=== PATIENT | male | born 1995 | race Caucasian/White ===

== ENCOUNTER 2016-12-20 14:28 | Emergency (ER) | payer BC ==
[2016-12-20 14:41] VITALS: BP 105/83; PULSE 108; RESP 16; TEMP 100; O2SAT 98
--- NOTE | 2016-12-20 15:13 | EDPHY ---
H & P Stated Complaint: Sore Throat x2days, vomiting HPI/ROS: CHIEF COMPLAINT: Sore throat HISTORY OF PRESENT ILLNESS: The patient is a 21 year old male who presents to the emergency department with 2-3 days of sore throat. He complains of pain with swallowing as well as some shortness of breath, but is still able to swallow. He has associated headache and feels febrile, but has not taken his temperature. Last night he had 1 episode of emesis. He has no associated abdominal pain or diarrhea. No cough or chest pain. The patient is not taking any prescription medication. He did not receive a flu shot this year. REVIEW OF SYSTEMS: A 10 point review of systems was performed and is negative with the exception of the elements mentioned in the history of present illness. Source: Patient - Personal History Current Tetanus/Diphtheria Vaccine: Yes Current Tetanus Diphtheria and Acellular Pertussis (TDAP): Yes - Medical/Surgical History Hx Asthma: No Hx Chronic Respiratory Disease: No Hx Diabetes: No Hx Cardiac Disease: No Hx Renal Disease: No Hx Cirrhosis: No Hx Alcoholism: No Hx HIV/AIDS: No Hx Splenectomy or Spleen Trauma: No Other PMH: Fibula Surgery - Social History Smoking Status: Never smoked Additional Social History: [employer] Student. Social ETOH. - Physical Exam Exam: Adult Physical: General Appearance: Alert, no acute distress. HR 108 at triage. Eyes: Pupils equal and round, no conjunctival injection, no discharge. ENT, Mouth: Mucous membranes are moist, Posterior oropharynx with erythema and scattered papules. No swelling, no exudates. Neck: Anterior cervical lymphadenopathy. Respiratory: Lungs are clear to auscultation; no wheezes, rales, or ronchi. Cardiovascular: Regular rate and rhythm; not tachycardic at time of my exam, no murmur, rub, or gallop. Gastrointestinal: Abdomen is soft and non tender, no masses or organomegaly, bowel sounds normal. Skin: Warm and dry, no rashes, normal color. Back: Nontender to palpation over the thoracolumbar spine. Extremities: No lower extremity edema, no calf tenderness or swelling. Neurological: Alert and oriented. Moving all four extremities easily and equally. Psychiatric: Normal affect. Constitutional: Initial Vital Signs Temperature (C) 37.8 C 12/20/16 14:39 Heart Rate 108 H 12/20/16 14:39 Respiratory Rate 16 12/20/16 14:39 Blood Pressure 105/83 H 12/20/16 14:39 O2 Sat (%) 98 12/20/16 14:39 O2 Delivery Mode Room Air Allergies/Adverse Reactions: No Known Allergies Allergy (Unverified 12/20/16 14:39) Home Medications: Medication Instructions Recorded Hydrocodone/APAP 5/325 [[place] 1 - 2 tab PO Q4 PRN #10 tab 12/20/16 5/325 (RX)] Medical Decision Making ED Course/Re-evaluation: The patient received 650mg Tylenol PO and 400mg Ibuprofen PO. A strep culture was sent. Rapid strep negative. I do not think that influenza testing will be helpful as he is outside the window for Tamiflu. He is not febrile or ill appearing. He is managing his secretions and appears well hydrated. We discussed symptomatic treatment of sore throat and danger signs that should prompt him to be re-evaluated. This is likely a viral pharyngitis. Differential Diagnosis: DDX includes but is not limited to viral or bacterial pharyngitis, strep throat , influenza, retropharyngeal abscess, epiglottitis, and mononucleosis. - Data Points Medications Given: Discontinued Medications Acetaminophen (Tylenol) 650 mg PO EDNOW ONE Stop: 12/20/16 15:17 Last Admin: 12/20/16 15:30 Dose: 650 mg Ibuprofen (Motrin) 400 mg PO EDNOW ONE Stop: 12/20/16 15:17 Last Admin: 12/20/16 15:30 Dose: 400 mg Departure - Departure Disposition: Home, Routine, Self-Care Clinical Impression: Acute pharyngitis Condition: Good Instructions: Pharyngitis (ED) Additional Instructions: Adult Pain & Fever Control: We recommend Acetaminophen (Tylenol) and Ibuprofen (Motrin,Advil) for pain and fever control. When fever is high or pain severe, both drugs can be used at the same time, but at different intervals. Please note the time differences. Your dose is: Acetaminophen 650mg every 4 to 6 hours Ibuprofen 400mg every 6-8 hours with food Note: Do not take Acetaminophen with Hydrocodone (Vicodin, Lortab) or Oxycodone (Percocet). These medications also contain Acetaminophen. No more than 3000mg of Acetaminophen should be taken in 24 hours (for an adult). Try Throat Coat tea, salt water gargles, lozenges. If you have fever (temperature over 100.4) you should stay home. Referrals: Antonella ACHARYA [Other] - As per Instructions [facility] [Outside] - As per Instructions Prescriptions: Hydrocodone/APAP 5/325 [[place] 5/325 (RX)] 1 - 2 tab PO Q4 PRN #10 tab PRN Reason: pain Report Scribed for: Alaina Cook Report Scribed by: Sary Rivera Date of Report: 12/20/16 Time of Report: 15:17 Physician Review and Approval Statement: 12/20/16 15:17 Portions of this note were transcribed by the medical front desk specialist. I, Dr. Alaina Cook, personally performed the history, physical exam, and medical decision- making; and confirmed the accuracy of the information in the transcribed note.
[2016-12-20] MEDS ORDERED: IBUPROFEN 200 MG TAB PO ONE (15:16)
[2016-12-20] MEDS ORDERED: ACETAMINOPHEN 325 MG TAB PO ONE (15:16)
== END 2016-12-20 16:41 | disposition home or self-care (01) ==
DX: J02.9 Acute pharyngitis, unspecified (principal)

== ENCOUNTER 2016-12-22 17:46 | Emergency (ER) | payer BC ==
--- NOTE | 2016-12-22 18:16 | EDPHY ---
H & P Stated Complaint: Here 2 days ago w/ same c/o'has laryngitis,sore throat. handling secretions Time Seen by Provider: 12/22/16 18:00 HPI/ROS: CHIEF COMPLAINT: continued sore throat HISTORY OF PRESENT ILLNESS: 21-year-old male complaining of 4 days of sore throat. He was seen in the ER 2 days ago for complaints of same, had negative strep testing. He was given supportive therapy. He returns today as symptoms continue, continued laryngitis, continued odynophagia. No nuchal rigidity. No headache. No fever or chills. No rash. No abdominal pain. No flank pain. REVIEW OF SYSTEMS: A ten point review of systems was performed and is negative with the exception of the items mentioned in the HPI PAST MEDICAL & SURGICAL HISTORY: No pertinent medical or surgical history SOCIAL HISTORY: Student nonsmoker PHYSICAL EXAM (Prior to examination, patient consented to physical exam, hands were washed and my usual and customary physical exam procedures followed) 1) GENERAL: Well-developed, well-nourished, alert and oriented. Appears appears nontoxic 2) HEAD: Normocephalic, atraumatic 3) HEENT: Pupils equal, round, reactive to light bilaterally. Sclera anicteric. Oropharynx: Hoarse voice. Bilateral tonsils are symmetrical, enlarged, white exudate present. Floor of mouth soft. Ears bilaterally with normal tympanic membranes. 4) NECK: Full range of motion, no meningeal signs . Positive submandibular adenopathy which is bilaterally tender in symmetrical. . 5) LUNGS: Clear auscultation bilaterally, no wheezes, no rhonchi, no retractions. 6) HEART: Regular rate and rhythm, no murmur, no heave, no gallop. 7) ABDOMEN: No guarding, no rebound, no focal tenderness, negative McBurney's, negative May's, negative Rovsing's, negative peritoneal sign, Specifically no left upper quadrant left flank tenderness 8) MUSCULOSKELETAL: Moving all extremities, no focal areas of tenderness, no obvious trauma. No peripheral edema or discoloration. 9) BACK: No CVA tenderness, no midline vertebral tenderness, no fluctuance, no step-off, no obvious trauma, no visual or palpable abnormality. 10) SKIN: No rash, no petechiae. 11) Psychiatric: Patient is oriented X 3, there is no agitation. DIFFERENTIAL DIAGNOSIS: in no particular include but limited to strep pharyngitis, mononucleosis, peritonsillar abscess, retropharyngeal abscess, paraspinal abscess - Personal History Current Tetanus Diphtheria and Acellular Pertussis (TDAP): Yes - Medical/Surgical History Hx Asthma: No Hx Chronic Respiratory Disease: No Hx Diabetes: No Hx Cardiac Disease: No Hx Renal Disease: No Hx Cirrhosis: No Hx Alcoholism: No Hx HIV/AIDS: No Hx Splenectomy or Spleen Trauma: No Other PMH: Fibula Surgery - Social History Smoking Status: Never smoked Constitutional: Initial Vital Signs Temperature (C) 37.1 C 12/22/16 17:52 Heart Rate 86 12/22/16 17:52 Respiratory Rate 18 12/22/16 17:52 Blood Pressure 113/73 12/22/16 17:52 O2 Sat (%) 93 12/22/16 17:52 O2 Delivery Mode Room Air Allergies/Adverse Reactions: No Known Allergies Allergy (Verified 12/22/16 17:51) Home Medications: Medication Instructions Recorded Hydrocodone/APAP 5/325 [[place] 1 - 2 tab PO Q4 PRN #10 tab 12/20/16 5/325 (RX)] Amoxicillin/Clavulanate Pot 875 mg PO BID #14 tab 12/22/16 [Augmentin 875 mg tab] methylPREDNISolone [Medrol Dose 4 mg PO DAILY #1 ea 12/22/16 Fitz] Medical Decision Making ED Course/Re-evaluation: Patient's Monospot is negative. High clinical suspicion for strep pharyngitis. Doubt pharyngeal abscess. Recommended starting on Augmentin. Also recommend starting the patient on Solu-Medrol. Inquired about prior adverse reaction to you steroid and/or mental health history and he denies both. Usual customary pharyngitis precautions provided. Follow up with ENT. - Data Points Laboratory Results: 12/22/16 18:22 Monoscreen NEGATIVE (NEGATIVE) Departure - Departure Disposition: Home, Routine, Self-Care Clinical Impression: Acute streptococcal pharyngitis Condition: Good Instructions: Pharyngitis (ED) Additional Instructions: Return to the ER immediately if you cannot swallow, have drooling, fevers, neck stiffness, cannot open your jaw, or any other symptoms that concern you. Referrals: Sandi Pitts MD [Medical Doctor] - 2-3 days, call for appt. Stand Alone Forms: School Excuse Prescriptions: Amoxicillin/Clavulanate Pot [Augmentin 875 mg tab] 875 mg PO BID #14 tab methylPREDNISolone [Medrol Dose Fitz] 4 mg PO DAILY #1 ea
[2016-12-22 19:17] VITALS: BP 129/85; PULSE 75; RESP 16; TEMP 99; O2SAT 95
== END 2016-12-22 19:21 | disposition home or self-care (01) ==
DX: J02.0 Streptococcal pharyngitis (principal)

== ENCOUNTER → 2017-03-30 | Outpatient (CLI) | payer BC | LOC: FIMAGING 09:18 | PROVIDERS: ATTEND Orthopaedic Surgery Hand Surgery | DX: S52.041A Displaced fracture of coronoid process of right ulna, initial encounter for closed fracture (principal); S53.104D Unspecified dislocation of right ulnohumeral joint, subsequent encounter | CPT/HCPCS: 73200-PO ==

== ENCOUNTER 2017-09-06 17:25 | Emergency (ER) | payer BC, OTHER ==
[2017-09-06 17:33] VITALS: TEMP 98.6
[2017-09-06] MEDS ORDERED: TDAP ADULT 0.5 ML INJ (BOOSTRIX) IM ONE (19:11)
--- NOTE | 2017-09-06 19:11 | EDPHY ---
H & P Stated Complaint: LAC TO 3RD DIGIT L HAND Time Seen by Provider: 09/06/17 17:40 HPI/ROS: Chief complaint: Left middle finger laceration History of present illness: This is a 22-year-old male who presents to the emergency department for left middle finger laceration. He was at work when he cut his finger tip on a knife. Reports pain. There has been bleeding that has been controlled with a dressing. No report of paresthesias or abnormal coolness in the finger. He is still moving it well. He is unsure of his last tetanus shot. - Personal History Current Tetanus/Diphtheria Vaccine: No - Medical/Surgical History Hx Asthma: No Hx Chronic Respiratory Disease: No Hx Diabetes: No Hx Cardiac Disease: No Hx Renal Disease: No Hx Cirrhosis: No Hx Alcoholism: No Hx HIV/AIDS: No Hx Splenectomy or Spleen Trauma: No Other PMH: Fibula Surgery - Social History Smoking Status: Never smoked - Physical Exam Exam: General: Alert, nontoxic Skin: 1 cm laceration to the tip of the left middle finger Musculoskeletal: Patient is flexing and extending his finger in the DIPJ, PIP and MCP joint well Vascular: Capillary refill brisk in the left middle finger Neurologic: Sensation intact using light touch and two-point discrimination Constitutional: Initial Vital Signs Temperature (C) 37 C 09/06/17 17:31 Heart Rate 68 09/06/17 17:31 Respiratory Rate 18 09/06/17 17:31 Blood Pressure 110/70 09/06/17 17:31 O2 Sat (%) 95 09/06/17 17:31 O2 Delivery Mode Room Air Allergies/Adverse Reactions: No Known Allergies Allergy (Verified 09/06/17 17:30) Home Medications: Medication Instructions Recorded NK [No Known Home Meds] 09/06/17 Medical Decision Making - Diagnostics Imaging Results: Imaging Impressions Finger X-Ray 09/06/17 18:14 Impression: No acute osseous findings. Imaging: I viewed and interpreted images myself Procedures: Procedure: Laceration repair. Verbal consent was obtained from the patient. The 1 cm laceration on the left middle finger was anesthetized in the usual fashion. The wound was irrigated, draped and explored to its base with a gloved finger. There were no deep structures involved. No tendon injury was identified. The wound was repaired with 5 0 Prolene, 3 simple interrupted sutures . The wound repair was simple . The procedure was performed by myself. ED Course/Re-evaluation: Patient seen under the supervision of my secondary supervising physician Dr. Ruiz Troncoso. Patient presents to the emergency department for a laceration to his left middle finger. The finger appears neurovascularly intact. He has good musculoskeletal control. X-ray is negative. Wound is anesthetized, cleaned and repaired. His tetanus is updated. He is discharged home. He is asked to follow up with a worker's compensation doctor or hand doctor for recheck. Return precautions are given. Patient voiced understanding and agreement with plan. Differential Diagnosis: Included but not limited to laceration, deep structure injury, foreign body contamination Departure - Departure Disposition: Home, Routine, Self-Care Clinical Impression: Finger laceration Qualifiers: Encounter type: initial encounter Finger: middle finger Damage to nail status: without damage Foreign body presence: without foreign body Laterality: left Qualified Code(s): S61.213A - Laceration without foreign body of left middle finger without damage to nail, initial encounter Condition: Good Instructions: Care For Your Stitches (ED), Finger Laceration (ED), Acute Wounds (ED) Additional Instructions: Follow-up with worker's compensation or hand doctor for further evaluation this week Stitches to be removed in approximately 7 days If symptoms worsen or new symptoms develop return to the emergency room for recheck Referrals: NONE *PRIMARY CARE P,. [Primary Care Provider] - As per Instructions Elizabeth Ramírez MD [Medical Doctor] - As per Instructions
[2017-09-06 20:04] VITALS: BP 108/77; PULSE 66; RESP 16; O2SAT 96
== END 2017-09-14 15:07 | disposition home or self-care (01) ==
PROC: 0HQGXZZ Repair Left Hand Skin, External Approach (ICD-10-PCS; principal; 2017-09-06)
DX: S61.213A Laceration without foreign body of left middle finger without damage to nail, initial encounter (principal); Z23 Encounter for immunization; W26.0XXA Contact with knife, initial encounter

== ENCOUNTER 2018-01-05 21:42 | Emergency (ER) | payer BC, OTHER ==
[2018-01-05 21:54] VITALS: BP 105/68; PULSE 83; RESP 16; TEMP 98.4; O2SAT 94
[2018-01-05] MEDS ORDERED: DEXAMETHASONE 4 MG TAB PO ONE (22:29)
[2018-01-05] MEDS ORDERED: OXYMETAZOLINE 30 ML NASAL SPRAY EACHNARE ONE (22:29)
--- NOTE | 2018-01-05 22:42 | EDPHY ---
H & P Stated Complaint: COUGH, R EAR CLOGGED, RUNNY NOSE Time Seen by Provider: 01/05/18 22:14 HPI/ROS: CHIEF COMPLAINT: Sinus congestion, right ear pain HISTORY OF PRESENT ILLNESS: Patient is a 22-year-old man who comes to the emergency department complaining sinus congestion and dry cough for the last 3 days, no fever. Tonight he also developed some right-sided ear pain. No headache, no neck pain, no shortness of breath. No nausea vomiting. No diarrhea. No rashes. His remained has also been ill with similar symptoms. REVIEW OF SYSTEMS: Constitutional: See HPI EENTM: See HPI denies: blurred vision, double vision, Respiratory: denies: cough, shortness of breath Cardiac: denies: chest pain, irregular heart rate, lightheadedness, palpitations Gastrointestinal/Abdominal: denies: abdominal pain, diarrhea, nausea, vomiting, blood streaked stools Genitourinary: denies: dysuria, frequency, hematuria, pain Musculoskeletal: denies: joint pain, muscle pain Skin: denies: lesions, rash, jaundice, bruising Neurological: denies: headache, numbness, paresthesia, tingling, dizziness, weakness Hematologic/Lymphatic: denies: blood clots, easy bleeding, easy bruising Immunologic/allergic: denies: HIV/AIDS, transplant EXAM: GENERAL: Well-appearing, well-nourished and in no acute distress. HEAD: Atraumatic, normocephalic. EYES: Pupils equal round and reactive to light, extraocular movements intact, sclera anicteric, conjunctiva are normal. ENT: TMs with mild effusion on the right, no erythema, sinus congestion, oropharynx clear without exudates. Moist mucous membranes. NECK: Normal range of motion, supple without lymphadenopathy or JVD. LUNGS: Breath sounds clear to auscultation bilaterally and equal. No wheezes rales or rhonchi. HEART: Regular rate and rhythm without murmurs, rubs or gallops. ABDOMEN: Soft, nontender, normoactive bowel sounds. No guarding, no rebound. No masses appreciated. BACK: No CVA tenderness, no spinal tenderness, step-offs or deformities EXTREMITIES: Normal range of motion, no pitting or edema. No clubbing or cyanosis. NEUROLOGICAL: Cranial nerves II through XII grossly intact. Normal speech, normal gait. 5/5 strength, normal movement in all extremities, normal sensation PSYCH: Normal mood, normal affect. SKIN: Warm, dry, normal turgor, no visible rashes or lesions. Source: Patient Exam Limitations: No limitations - Personal History Current Tetanus Diphtheria and Acellular Pertussis (TDAP): Yes - Medical/Surgical History Hx Asthma: No Hx Chronic Respiratory Disease: No Hx Diabetes: No Hx Cardiac Disease: No Hx Renal Disease: No Hx Cirrhosis: No Hx Alcoholism: No Hx HIV/AIDS: No Hx Splenectomy or Spleen Trauma: No Other PMH: Fibula Surgery, R ELBOW DISLOCATION - Family History Significant Family History: No pertinent family hx - Social History Smoking Status: Never smoked Alcohol Use: Sober Drug Use: None Constitutional: Initial Vital Signs Temperature (C) 36.9 C 01/05/18 21:52 Heart Rate 83 01/05/18 21:52 Respiratory Rate 16 01/05/18 21:52 Blood Pressure 105/68 01/05/18 21:52 O2 Sat (%) 94 01/05/18 21:52 O2 Delivery Mode Room Air Allergies/Adverse Reactions: No Known Allergies Allergy (Verified 09/06/17 17:30) Home Medications: Medication Instructions Recorded Promethazine HCl/Codeine 5 ml PO Q4-6PRN PRN #90 ml 01/05/18 [Prometh-Codein 6.25-10 mg/5 ml] Medical Decision Making ED Course/Re-evaluation: The patient appears to have an upper respiratory tract infection with mild effusion in his ear. I recommended decongestants and a dose of Decadron and will prescribe cough syrup. The patient understands and agrees with this plan. He declines further workup or testing at this time. Differential Diagnosis: Partial list of the Differential diagnosis considered include but were not limited to; upper respiratory tract infection, sinusitis, otitis media, otitis externa and although unlikely based on the history and physical exam, I also considered meningitis, pneumonia, sepsis. I discussed these differential diagnoses and the plan with the patient as well as the usual and expected course. The patient understands that the diagnosis is provisional and that in medicine we are not always correct and that further workup is often warranted. Usual and customary warnings were given. All of the patient's questions were answered. The patient was instructed to return to the emergency department should the symptoms at all worsen or return, otherwise to followup with the physician as we discussed. - Data Points Medications Given: Discontinued Medications Dexamethasone (Decadron) 10 mg PO EDNOW ONE Stop: 01/05/18 22:30 Last Admin: 01/05/18 22:33 Dose: 10 mg Oxymetazoline HCl (Afrin Nasal [place]) 2 sprays EACHNARE EDNOW ONE Stop: 01/05/18 22:30 Last Admin: 01/05/18 22:34 Dose: 2 spr Departure - Departure Disposition: Home, Routine, Self-Care Clinical Impression: Upper respiratory tract infection Qualifiers: URI type: unspecified viral URI Qualified Code(s): J06.9 - Acute upper respiratory infection, unspecified Condition: Good Instructions: Upper Respiratory Infection (ED) Referrals: NONE *PRIMARY CARE P,. [Primary Care Provider] - As per Instructions Kan Rhodes MD [[facility] [place] Primary Care Provider] - As per Instructions Prescriptions: Promethazine HCl/Codeine [Prometh-Codein 6.25-10 mg/5 ml] 5 ml PO Q4-6PRN PRN # 90 ml PRN Reason: Cough, Moderate
== END 2018-01-05 22:48 | disposition home or self-care (01) ==
DX: J06.9 Acute upper respiratory infection, unspecified (principal)

== ENCOUNTER 2018-06-22 22:13 | Emergency (ER) | payer BC ==
--- NOTE | 2018-06-22 23:02 | EDPHY ---
H & P Time Seen by Provider: 06/22/18 23:00 HPI/ROS: Chief complaint. Cough HPI. A 23-year-old male presents with cough for 2 days. It is worse at night. Slight productive in the morning. No fever. No chest pain. No shortness of breath. No history of lung problems. No recent travel. Sick contact with girlfriend. No abdominal pain or vomiting or diarrhea. Znxy-[id number] treatment so far. ROS Constitutional. no fever/chills, no weakness Eyes. no problems with vision ENT. no sore throat, no nasal drainage Cardiovascular. no chest pain Respiratory. Cough but no shortness of breath Abdominal. no abdominal pain, no nausea/vomiting, no diarrhea . no problems urinating MS. no calf pain/swelling, no neck/back pain, no joint pain Skin. no rash Lymph. no swollen glands Neuro. no headache, no dizziness, no difficulty walking or with speech Past Medical/Surgical History: Fibula surgery, right elbow dislocation Social History: Single, nonsmoker, no alcohol Smoking Status: Never smoked Physical Exam: General Appearance: Alert well-developed male mild distress vital signs are stable Eyes: Pupils equal and round no pallor or injection. ENT, tympanic membranes are normal. Pharynx slightly red but without exudate Respiratory: Retractions. Mild inspiratory expiratory rhonchi. Cardiovascular: Regular rate and rhythm. Gastrointestinal: Abdomen is soft and nontender, no masses, bowel sounds normal. Neurological: Awake and alert, sensory and motor exams grossly normal. Skin: Warm and dry, no rashes. Musculoskeletal: Neck is supple nontender. Extremities symmetrical, full range of motion. Psychiatric: Patient is oriented X 3, there is no agitation. Constitutional: Initial Vital Signs Temperature (C) 37.0 C 06/22/18 22:17 Heart Rate 61 06/22/18 22:17 Respiratory Rate 16 06/22/18 22:17 Blood Pressure 100/75 06/22/18 22:17 O2 Sat (%) 95 06/22/18 22:17 O2 Delivery Mode Room Air Allergies/Adverse Reactions: No Known Allergies Allergy (Verified 09/06/17 17:30) Home Medications: Medication Instructions Recorded Benzonatate [Tessalon Pearles (RX)] 100 mg PO TID PRN #20 cap 06/22/18 Medical Decision Making - Diagnostics Imaging Results: Chest x-ray interpreted by me consistent with bronchitis. No evidence for pneumonia ED Course/Re-evaluation: Re-evaluation 11:50 p.m.. Patient is stable. He and I discussed imaging study results, treatment plan including criteria for return importance of follow-up further evaluation. He expresses understanding and agreement Patient is given Tessalon Perle in the emergency department for cough Differential Diagnosis: I considered pneumonia. It appears the patient has bronchitis Departure - Departure Disposition: Home, Routine, Self-Care Clinical Impression: Acute bronchitis Qualifiers: Bronchitis organism: unspecified organism Qualified Code(s): J20.9 - Acute bronchitis, unspecified Condition: Good Instructions: Acute Bronchitis (ED) Additional Instructions: Drink plenty of fluids and stay hydrated. Good rest and sleep Albuterol inhaler using 2 puffs every 4 hr to help with cough Tessalon Perles to help with cough. Return for worsening symptoms. Re-evaluation in 2-3 days if not improving Referrals: NONE *PRIMARY CARE P,. [Primary Care Provider] - As per Instructions Prince Bullock MD [Medical Doctor] - 2-3 days, if not improved Prescriptions: Benzonatate [Tessalon Pearles (RX)] 100 mg PO TID PRN #20 cap PRN Reason: Cough, Moderate
[2018-06-22] MEDS ORDERED: BENZONATATE 100 MG CAP PO ONE (23:52)
[2018-06-22] MEDS ORDERED: ALBUTEROL INH PREPACK MDI TAKEHOME ONE (23:52)
[2018-06-23 00:09] VITALS: BP 115/71
== END 2018-06-23 00:08 | disposition home or self-care (01) ==
DX: J20.9 Acute bronchitis, unspecified (principal)

== ENCOUNTER 2019-02-28 11:02 | Emergency (ER) | payer BC ==
[2019-02-28] MEDS ORDERED: LIDOCAINE 4%/MENTHOL 1% PATCH TD ONE (11:21)
[2019-02-28] MEDS ORDERED: DIAZEPAM 5 MG TAB PO ONE (11:21)
[2019-02-28] MEDS ORDERED: IBUPROFEN 600 MG TAB PO ONE (11:21)
--- NOTE | 2019-02-28 11:26 | EDPHY ---
General Time Seen by Provider: 02/28/19 11:09 Narrative: CLINICAL IMPRESSION: Right-sided cervical strain ASSESSMENT/PLAN: 23-year-old male presents to the emergency department with atraumatic right- sided neck pain after stretching this morning. No associated neurological deficits including headache, facial numbness, diplopia, upper extremity weakness or paresthesias, dizziness or vertigo. Pain is reproducible along the paravertebral muscles of the right side. X-rays negative for acute fracture, read by Radiology with mild anterior listhesis C4 on C5. Patient received oral analgesics and was allowed a period of observation however reported no improvement in his pain. Discussed with Dr. Isaacs. CT a ordered which was read by Radiology showing no evidence of vertebral artery dissection or acute C- spine abnormality. Results reviewed with the patient. I have prescribed pain medication and muscle relaxers. I have encouraged primary care follow-up and referrals given. Warning signs return to ED sooner discussed in discharge. DIFFERENTIAL DX: Differential includes but not limited to musculoskeletal strain, fracture, subluxation, vertebral artery dissection ED PROCEDURES: See lab and/or imaging results below ED COURSE: 12:00pm: xrays reviewed by myself, radiology read without acute fx, mild anterolithesis C4 on C5. Patient reassessed. Reports still has 9/10 pain trying to turn head to right. Discussed with Dr. Isaacs. Patient has no neuro deficits or neuro complaints. However given the subjective reported level of pain, he will be observed for another 30 min to allow medications to take cold and if pain persists consider CTA neck. 12:35 p.m.: Patient reassessed again. States his pain is essentially unchanged. Continues to complain of "really bad pain", 9/10 with attempted turning his head to the right. Remains without complaints of headache, dizziness, vertigo, upper extremity weakness or numbness, diplopia, or facial numbness. However given persistent unchanged pain level, will pursue CTA. 2:15 p.m.: CTA results discussed with Dr. Helm. Negative study CHIEF COMPLAINT: Right-sided neck pain HPI: 23-year-old otherwise healthy male presents to the emergency department with complaints of atraumatic right-sided neck pain that began this morning after he awoke and was stretching. Patient reports feeling a pulling and cracking sensation in his neck. He had simply put his arms above his head, stretched his legs out, and turned his head to the left. He states now he has significant right-sided neck pain. No associated dizziness, lightheadedness, vertigo, headache, upper extremity numbness or weakness. No prior neck injury or surgery. He states pain is worse with attempts to turn the head neck to the right and with standing up. He states "this pain is worse than when I dislocated my elbow and fractured my wrist". He did not take anything for pain prior to arrival. He drove himself to the emergency department. PAST MEDICAL HISTORY: No significant medical history. Past orthopedic surgical history See triage summary and nurse notes for addition applicable history REVIEW OF SYSTEMS: A full 10 point review of systems was negative except for those mentioned in HPI. PHYSICAL EXAM: General Appearance: Alert, oriented, appropriate, cooperative, laying in the bed with his head turned slightly to the left, well hydrated, non-toxic appearing, VSS, no hypoxia. HEENT: TMs are clear bilaterally no perforation or FB, no injection, no evidence of serous or mucopurulent otitis. Oropharynx clear is no erythema or exudates, no tonsillar hypertrophy or asymmetry. Dentition without abnormality. Neck: Supple, tenderness along the paravertebral muscles of the cervical spine, extending up to the insertion point at the occiput. No reproducible tenderness along the trapezius. No carotid bruits. No obvious swelling or deformity. Patient is resistant to turning his head midline or to the right due to worsening pain. No midline pain. no lymphadenopathy, no meningismus. Musculoskeletal:. Intact range of motion of bilateral upper extremities. Director Of Market Analysis strength 5/5 bilaterally. Intact distal neurovascular exam of both arms Skin: Warm, dry, no rashes, no nodules on palpation. MEDICAL DECISION MAKING: Patient was seen independently. Secondary supervising physician at time of evaluation was: Dr. Isaacs. Diagnosis: Right-sided cervical strain. New, requires workup Summary: See Assessment and Plan for summary of ED visit Clinical lab tests: ordered / reviewed. Independent visualization of images, tracing, or specimens: Yes. Patient Progress: Stable for discharge. - Diagnostics Imaging Results: Imaging Impressions Cervical Spine X-Ray 02/28/19 11:22 Impression: Rightward curvature of the cervical spine with trace anterolisthesis of C4 on C5 with no acute osseous findings. If pain persists and clinical suspicion warrants, consider CT or MRI Neck CTA 02/28/19 12:38 Impression: 1. Normal CT angiogram of the neck to the base of the skull. Anthony Browne was notified of these findings by telephone at 2:15 PM on 02/28/2019. - History Smoking Status: Never smoked - Objective Vital Signs: Initial Vital Signs Temperature (C) 36.5 C 02/28/19 11:06 Heart Rate 68 02/28/19 11:06 Respiratory Rate 16 02/28/19 11:06 Blood Pressure 124/94 H 02/28/19 11:06 O2 Sat (%) 98 02/28/19 11:06 O2 Delivery Mode Room Air Allergies/Adverse Reactions: No Known Allergies Allergy (Verified 02/28/19 11:06) Home Medications: Medication Instructions Recorded Cyclobenzaprine [Flexeril] 10 mg PO TID #15 tab 02/28/19 Hydrocodone/APAP 5/325 [[place] 1 - 2 tab PO Q4H PRN #10 tab 02/28/19 5/325 (*)] Laboratory Results: 02/28/19 13:23 POC Hgb 16.3 gm/dL gm/dL (13.7-17.5) POC Hct 48 % % (40-51) POC Sodium 142 mEq/L mEq/L (135-145) POC Potassium 4.2 mEq/L mEq/L (3.3-5.0) POC Chloride 105 mEq/L mEq/L (97-110) POC Total CO2 26 mEq/L mEq/L (22-31) POC BUN 11 mg/dL mg/dL (7-23) POC Creatinine 1.0 mg/dL mg/dL (0.7-1.3) POC Glucose 91 mg/dL mg/dL (70-100) Medications Given: Discontinued Medications Diazepam (Valium) 5 mg PO EDNOW ONE Stop: 02/28/19 11:22 Last Admin: 02/28/19 11:35 Dose: 5 mg Ibuprofen (Motrin) 600 mg PO EDNOW ONE Stop: 02/28/19 11:22 Last Admin: 02/28/19 11:35 Dose: 600 mg Miscellaneous Medication (Icy Hot Lidocaine/Menthol 4%/1% Patch) 1 patch TD EDNOW ONE Stop: 02/28/19 11:22 Last Admin: 02/28/19 11:36 Dose: 1 patch Point of Care Test Results: Chemistry 02/28/19 13:23 POC Sodium 142 mEq/L mEq/L (135-145) POC Potassium 4.2 mEq/L mEq/L (3.3-5.0) POC Chloride 105 mEq/L mEq/L (97-110) POC Total CO2 26 mEq/L mEq/L (22-31) POC BUN 11 mg/dL mg/dL (7-23) POC Creatinine 1.0 mg/dL mg/dL (0.7-1.3) POC Glucose 91 mg/dL mg/dL (70-100) ISTAT H&H 02/28/19 13:23 POC Hgb 16.3 gm/dL gm/dL (13.7-17.5) POC Hct 48 % % (40-51) Departure - Departure Disposition: Home, Routine, Self-Care Clinical Impression: Cervical muscle strain Qualifiers: Encounter type: initial encounter Qualified Code(s): S16.1XXA - Strain of muscle, fascia and tendon at neck level, initial encounter Condition: Good Instructions: Cervical Strain (ED) Additional Instructions: DISCHARGE INSTRUCTIONS FROM YOUR DOCTOR Thank you for visiting our emergency department today. You were treated by a physician foundation assistant today and your case was reviewed with our ED Attending physician. Please keep in mind that discharge from the emergency department does not mean that there is nothing wrong - it simply means that we have not identified an emergency condition that requires further evaluation or treatment in the hospital. You should always plan to follow up with primary care for re- evaluation of your condition in the next 2-3 days. If you have been referred to a specialist, please call as soon as possible (today or tomorrow) to schedule your follow up appointment at the appropriate time. CT ANGIOGRAM OF YOUR NECK SHOWS NO EVIDENCE OF VERTEBRAL ARTERY DISSECTION OR C- SPINE FRACTURE OR ABNORMALITY. PAIN IS LIKELY SECONDARY TO MUSCULOSKELETAL STRAIN. PRESCRIPTIONS WERE GIVEN FOR MUSCLE RELAXERS AND PAIN MEDICATION TO USE IF NEEDED. PLEASE CONSIDER CONTINUING USE OF AN ANTI-INFLAMMATORY. REST AND AVOID ACTIVITIES THAT EXACERBATE YOUR PAIN. USE ICE OR HEAT. FOLLOW UP WITH PRIMARY CARE DOCTOR. RETURN TO ED FOR SEVERE WORSENING PAIN, DIZZINESS OR VERTIGO, NUMBNESS TO ARM HAND OR FINGERS, NUMBNESS TO FACE, SEVERE HEADACHE OR ANY People present with illnesses and injuries in different ways, and it is always possible that we have missed something. You may always return for re-evaluation if symptoms worsen or if they are not improving or if you develop new/different symptoms. Again, thank you for choosing our emergency department. We hope that you feel better. Referrals: NONE *PRIMARY CARE P,. [Primary Care Provider] - As per Instructions Xiang Pyle DO [Doctor of Osteopathy] - 2-3 days, call for appt. Stand Alone Forms: School Excuse Prescriptions: Cyclobenzaprine [Flexeril] 10 mg PO TID #15 tab Hydrocodone/APAP 5/325 [[place] 5/325 (*)] 1 - 2 tab PO Q4H PRN #10 tab PRN Reason: Pain, Moderate
[2019-02-28] MEDS ORDERED: IOPAMIDOL (ISOVUE 370) 100 ML BTL IV ONE (13:48)
--- NOTE | 2019-02-28 14:36 | ASMTCAGE ---
CAGE Do you feel guilty about Answers: No your drinking or drug use? Date Signed: 02/28/2019 02:34 PM Electronically Signed By:Dayanna Hopkins RN
[2019-02-28 14:52] VITALS: BP 110/62
[2019-02-28] MEDS ORDERED: PATCH REMOVAL 1 EA PATCH TD SCH (21:00)
== END 2019-02-28 14:50 | disposition home or self-care (01) ==
DX: S16.1XXA Strain of muscle, fascia and tendon at neck level, initial encounter (principal); X50.1XXA Overexertion from prolonged static or awkward postures, initial encounter
CPT/HCPCS: 82435-PO; 82565-PO; 82947-PO; 84132-PO; 84295-PO; 84520-PO; 85014-ER; Q9967